=== PATIENT | female | born 1990 | race Caucasian/White ===

== ENCOUNTER 2016-11-14 08:50 | Day surgery (SDC) | payer OTHER ==
[2016-11-13 16:40] VITALS: BMI 28.3
[2016-11-14] VITALS (10 sets, daily range): BP systolic 112–129; BP diastolic 63–76; PULSE 63–89; RESP 10–34; Ht 152.4 cm; Wt 66.1 kg
[~2016-11-14] VITALS: Ht 152.4 cm; Wt 66.1 kg
[2016-11-14] MEDS ORDERED: SOD CHLORIDE 0.9% 1,000 ML IV SCH (11:00)
[2016-11-14] MEDS ORDERED: CEFAZOLIN 2 GM/50 ML (PMX) 50 ML IVPB SCH (11:00)
[2016-11-14] MEDS ORDERED: MIDAZOLAM 1 MG/ML 2 ML INJ ONE (13:11)
[2016-11-14] MEDS ORDERED: PROPOFOL 20 ML ONE (13:11)
[2016-11-14] MEDS ORDERED: ONDANSETRON 4 MG INJ ONE (13:23)
[2016-11-14] MEDS ORDERED: DEXAMETHASONE 4 MG/ML 1 ML INJ ONE (13:23)
[2016-11-14] MEDS ORDERED: CEFAZOLIN 1 GM INJ ONE (13:25)
[2016-11-14] MEDS ORDERED: BUPIVACAINE 0.25% (MPF) 30 ML INJ INJ ONE (13:25)
[2016-11-14] MEDS ORDERED: BUPIVACAINE 0.25% (MPF) 30 ML INJ ONE (13:27)
[2016-11-14] MEDS ORDERED: FENTAnyl 50 MCG/ML VIAL ONE (13:40)
[2016-11-14] MEDS ORDERED: HYDROCODONE/APAP (5/325) TAB PO ONE (14:00)
[2016-11-14] MEDS ORDERED: HYDROmorphONE (0.2 MG/ML) 10ML SYG IV PRN ×2 (14:30)
--- NOTE | 2016-11-14 14:32 | OPR ---
DATE OF OPERATION: 11/14/2016 INDICATION: This is a 26-year-old female with a left breast tumor. She requests surgical excision. Risks, alternatives, benefits, and personnel were discussed with the patient. The patient express ed understanding and consents to the operation. PREOPERATIVE DIAGNOSIS: Left breast tumor. POSTOPERATIVE DIAGNOSIS: Left breast tumor. OPERATION PERFORMED: 1. Left needle localized breast mass excision with 5 cm size incision and 5 cm size mass. 2. Localized adjacent tissue transfer with the use of skin flaps. SURGEON: Jeremy Brand MD SPECIMEN: Left breast mass. COMPLICATIONS: None. ANESTHESIA: General. PROCEDURE: The patient was taken to the OR and prepped and draped in the usual sterile fashion. Prather rgical timeout was performed. IV antibiotics were given. Radiographic imaging is identified. It a ppears that the wire is localized next to the mass, not into the mass. A curvilinear incision was ma de at the left lateral border of the left breast areola. Dissection cautery was carried down to the mass and circumferentially excised using the guidewire as localization. The mass was excised. The re was good hemostasis. Due to the large tissue defect, localized adjacent tissue transfer with the use of skin flaps was performed. Multilayer closure with interrupted 3-0 Vicryl and running 4-0 Mo nocryl. Local anesthesia was injected. Dressings applied. Dictated By: JEREMY MOCK/DARWIN Conf#: [id number] DID#: [id number]
== END 2016-11-14 16:05 | disposition home or self-care (01) ==
LOC: SDS 08:50
PROVIDERS: ATTEND Surgery
DX: D24.2 Benign neoplasm of left breast (principal); N60.02 Solitary cyst of left breast
CPT/HCPCS: 14000; 19120; 84703; 88307; J0690; J1100; J1170; J2250; J2405; J3010; Z7512; Z7610

== ENCOUNTER 2017-10-18 20:24 | Emergency (ER) | END 2017-10-18 23:29 | disposition home or self-care (01) ==

== ENCOUNTER 2017-10-20 05:39 | Emergency (ER) | END 2017-10-20 09:12 | disposition home or self-care (01) ==